=== PATIENT | female | born 1950 | race Caucasian/White ===

== ENCOUNTER 2021-11-19 05:33 | Outpatient (CLI) | payer MEDICARE ==
[~2021-11-19] VITALS: Ht 157.5 cm; Wt 83.9 kg
[2021-11-19] MEDS ORDERED: DULO60CA59 PO (12:31)
[2021-11-19] MEDS ORDERED: ASPI-992 PO (12:31)
[2021-11-19] MEDS ORDERED: MAGN250T13 PO (12:31)
[2021-11-19] MEDS ORDERED: LATA7.5D OP (12:31)
[2021-11-19] MEDS ORDERED: LEVO50CA4 PO (12:31)
[2021-11-19] MEDS ORDERED: CALCIUM (12:31)
[2021-11-19] MEDS ORDERED: MV-M1TAB20 PO (12:31)
[2021-11-19] MEDS ORDERED: DENO60DI SQ (12:31)
[2021-11-19] MEDS ORDERED: GUAI400T86 PO (12:31)
[2021-11-19] MEDS ORDERED: CYCL10TA25 PO (12:31)
[2021-11-19] MEDS ORDERED: LISI10TA25 PO (12:31)
[2021-11-19] MEDS ORDERED: DICY20TA PO (12:31)
[2021-11-19] MEDS ORDERED: ALPR1TAB7 PO (12:31)
[2021-11-19] MEDS ORDERED: HYDR-3447 PO (12:31)
[2021-11-19] MEDS ORDERED: ASPI-999 PO (12:31)
== END 2021-11-21 14:01 | disposition home or self-care (01) ==
LOC: PREOP 05:33
PROVIDERS: ATTEND Specialist
DX: Z01.818 Encounter for other preprocedural examination (principal); H25.9 Unspecified age-related cataract

== ENCOUNTER 2021-11-22 09:06 | Day surgery (SDC) | payer MEDICARE ==
[~2021-11-22] VITALS: Ht 157.5 cm; Wt 86.3 kg
[~2021-11-22 09:06] MED LIST: ALPR1TAB7 PO; ASPI-992 PO; ASPI-999 PO; CALCIUM; CYCL10TA25 PO; DENO60DI SQ; DICY20TA PO; DULO60CA59 PO; GUAI400T86 PO; HYDR-3447 PO; LATA7.5D OP; LEVO50CA4 PO; LISI10TA25 PO; MAGN250T13 PO; MV-M1TAB20 PO
[2021-11-22] MEDS ORDERED: MIDAZOLAM 2 MG/2 ML (VERSED) VIAL ONE (09:09)
[2021-11-22] MEDS: TETRACAINE 0.5% OPHTH SOLN 4 ML BTL (SINGLE DOSE ONLY) OU PRN ×4 (09:35→09:53)
[2021-11-22] MEDS: TROPICAMIDE 1% OPH SOLN (MYDRIACYL) 15 ML BTL OP SCH ×3 (09:41→09:53)
[2021-11-22] MEDS: PHENYLEPHRINE 10% OPHTH (NEO-SYN) 5 ML BTL OU SCH ×3 (09:41→09:53)
[2021-11-22] MEDS ORDERED: TIMOLOL MALEATE 0.5% 5 ML (TIMOPTIC) BTL OU PRN (09:45)
[2021-11-22] MEDS ORDERED: POVIDONE (BETADINE) OPHTH SOLN 5% 30 ML OP ONE (09:45)
[2021-11-22] MEDS ORDERED: MOXIFLOXACIN OPHTH SOLN 5 MG/ML 0.3 ML SYRINGE OP ONE (09:45)
[2021-11-22 09:51] VITALS: BP 130/73
--- NOTE | 2021-11-22 09:53 | Ophthalmologist Pre-Op Note ---
Pre-Operative Progress Note H&P Reviewed The H&P was reviewed, patient examined and no changes noted. Date H&P Reviewed: Nov 22, 2021 Time H&P Reviewed: 09:52 Pre-Op Dx Cataract, Right Eye SALVATORE WANG MD Nov 22, 2021 09:52
--- NOTE | 2021-11-22 10:44 | Ophthalmology Operative Report ---
Cataract removal/placement IOL PREOPERATIVE DIAGNOSIS: Cataract Right Eye POSTOPERATIVE DIAGNOSIS: Cataract Right Eye PROCEDURE: Cataract removal and placement of posterior chamber implant, right eye SURGEON: Geovany Wang ANESTHESIA: Topical with sedation COMPLICATIONS: None ESTIMATED BLOOD LOSS: Minimal DESCRIPTION OF PROCEDURE: After proper informed consent was obtained, the patient, a 71 female, was taken to the Operating Room and the right eye was anesthetized with tetracaine. The right eye was then prepped and draped in the usual manner. A wire lid speculum was placed. A paracentesis was made at the left hand position. Preservative free lidocaine was injected into the anterior chamber followed by viscoelastic. A clear corneal incision was made in the temporal position. A capsulorrhexis was preformed and the central nuclear and cortical material were removed. The posterior capsule was polished and Alejandro 23.0 AU00T0 IOL was placed into the capsular bag. The residual viscoelastic was aspirated and balanced saline solution was injected into the anterior chamber. Moxifloxacin was injected into the anterior chamber. The wound was checked and found to be water tight. The patient tolerated the procedure well without complications. GEOVANY WANG MD Nov 22, 2021 10:44
[2021-11-22 10:48] VITALS: BP 121/98
[2021-11-22] MEDS ORDERED: acetaZOLAMIDE ER 500 MG CAP (DIAMOX SEQUELS) PO ONE (12:00)
--- NOTE | 2021-11-22 14:50 | Anesthesia-General Post-Op ---
MAC Patient Condition Mental Status/LOC: Same as Preop Cardiovascular: Satisfactory Nausea/Vomiting: Absent Respiratory: Satisfactory Pain: Controlled Complications: Absent Post Op Complications Complications None Follow Up Care/Instructions Patient Instructions None needed. Anesthesiology Discharge Order Discharge Order Patient is doing well, no complaints, stable vital signs, no apparent adverse anesthesia problems. No complications reported per nursing. DIAN AGUIRRE CRNA Nov 22, 2021 14:50
== END 2021-11-22 10:50 | disposition home or self-care (01) ==
LOC: SDC 09:06
PROVIDERS: ATTEND Specialist
DX: H26.9 Unspecified cataract (principal)
CPT/HCPCS: 66984; V2632

== ENCOUNTER 2021-11-28 06:06 | Outpatient (CLI) | payer MEDICARE | END 2021-12-02 12:02 | LOC: PREOP 06:06 | PROVIDERS: ATTEND Specialist | DX: Z01.818 Encounter for other preprocedural examination (principal); H25.9 Unspecified age-related cataract ==

== ENCOUNTER 2021-12-06 09:43 | Day surgery (SDC) | payer MEDICARE ==
[~2021-12-06] VITALS: Ht 157.5 cm; Wt 86.3 kg
[2021-12-06] MEDS ORDERED: MOXIFLOXACIN OPHTH SOLN 5 MG/ML 0.3 ML SYRINGE OP ONE (09:45)
[2021-12-06] MEDS ORDERED: TIMOLOL MALEATE 0.5% 5 ML (TIMOPTIC) BTL OU PRN (09:45)
[2021-12-06] MEDS ORDERED: POVIDONE (BETADINE) OPHTH SOLN 5% 30 ML OP ONE (09:45)
[2021-12-06] MEDS: TETRACAINE 0.5% OPHTH SOLN 4 ML BTL (SINGLE DOSE ONLY) OU PRN ×4 (09:51→10:09)
[2021-12-06] MEDS: TROPICAMIDE 1% OPH SOLN (MYDRIACYL) 15 ML BTL OP SCH ×3 (09:57→10:09)
[2021-12-06 09:58] VITALS: BP 108/72
[2021-12-06] MEDS: PHENYLEPHRINE 10% OPHTH (NEO-SYN) 5 ML BTL OU SCH ×3 (09:58→10:09)
--- NOTE | 2021-12-06 10:45 | Ophthalmologist Pre-Op Note ---
Pre-Operative Progress Note H&P Reviewed The H&P was reviewed, patient examined and no changes noted. Date H&P Reviewed: Dec 06, 2021 Time H&P Reviewed: 10:45 Pre-Op Dx Cataract, Left Eye SALVATORE WANG MD Dec 06, 2021 10:45
[2021-12-06] MEDS ORDERED: MIDAZOLAM 2 MG/2 ML (VERSED) VIAL ONE (10:51)
[2021-12-06] MEDS ORDERED: acetaZOLAMIDE ER 500 MG CAP (DIAMOX SEQUELS) PO ONE (11:00)
--- NOTE | 2021-12-06 11:10 | Ophthalmology Operative Report ---
Cataract removal/placement IOL PREOPERATIVE DIAGNOSIS: Cataract Left Eye POSTOPERATIVE DIAGNOSIS: Cataract Left Eye PROCEDURE: Cataract removal and placement of posterior chamber implant, left eye SURGEON: Geovany Wang ANESTHESIA: Topical with sedation COMPLICATIONS: None ESTIMATED BLOOD LOSS: Minimal DESCRIPTION OF PROCEDURE: After proper informed consent was obtained, the patient, a 71 female, was taken to the Operating Room and the left eye was anesthetized with tetracaine. The left eye was then prepped and draped in the usual manner. A wire lid speculum was placed. A paracentesis was made at the left hand position. Preservative free lidocaine was injected into the anterior chamber followed by viscoelastic. A clear corneal incision was made in the temporal position. A capsulorrhexis was preformed and the central nuclear and cortical material were removed. The posterior capsule was polished and an Alejandro 23.0 AU00T0 was placed into the capsular bag. The residual viscoelastic was aspirated and balanced saline solution was injected into the anterior chamber. Moxifloxacin was injected into the anterior chamber. The wound was checked and found to be water tight. The patient tolerated the procedure well without complications. GEOVANY WANG MD Dec 06, 2021 11:10
[2021-12-06 11:18] VITALS: BP 113/93
--- NOTE | 2021-12-06 12:54 | Anesthesia-General Post-Op ---
MAC Patient Condition Mental Status/LOC: Same as Preop Cardiovascular: Satisfactory Nausea/Vomiting: Absent Respiratory: Satisfactory Pain: Controlled Complications: Absent Post Op Complications Complications None Follow Up Care/Instructions Patient Instructions None needed. Anesthesiology Discharge Order Discharge Order Patient is doing well, no complaints, stable vital signs, no apparent adverse anesthesia problems. No complications reported per nursing. SHILA SCRUGGS CRNA Dec 06, 2021 12:54
== END 2021-12-06 11:19 | disposition home or self-care (01) ==
LOC: SDC 09:43
PROVIDERS: ATTEND Specialist
DX: H25.9 Unspecified age-related cataract (principal); Z79.82 Long term (current) use of aspirin
CPT/HCPCS: 66984; V2632